=== PATIENT | male | born 1965 | race Caucasian/White ===

== ENCOUNTER 2025-10-09 08:45 | Emergency (ER) | payer SELFPAY ==
[2025-10-09] VITALS (10 sets, daily range): BP systolic 173–190; BP diastolic 73–104; PULSE 86–108; RESP 13–24; TEMP 36.4; O2SAT 95–98
--- NOTE | ~2025-10-09 | XR_ITS ---
Examination: XR chest 1V portable Clinical History: slurred speech, r/o CVA Comparison: None Technique: Portable AP Findings: Heart size mildly enlarged. Round nodular opacity right CP angle. Mildly increased interstitial markings. No acute bony abnormality. IMPRESSION: 1. Recommend CT chest to confirm right basilar nodule benign. 2. Mild interstitial pulmonary edema not excluded. Reviewed, dictated and finalized at location R. [employer]
--- NOTE | ~2025-10-09 | CT_ITS ---
CT HEAD NON-CONTRAST Clinical History: slurred speech, r/o CVA Comparison: None Technique: Unenhanced axial images skull base to vertex Coronal, sagittal reformats CT images acquired with automatic exposure control for dose reduction DLP: 1416 mGy-cm Findings: Sulci, ventricles: Unremarkable. No intracerebral hemorrhage. No evidence acute territorial infarct. No mass effect, midline shift. Bony calvarium intact. Visualized paranasal sinuses: Clear. Mastoid air cells: Clear. IMPRESSION: 1. No acute intracranial findings. Reviewed, dictated and finalized at location R. [employer]
--- NOTE | 2025-10-09 08:45 | ECG_ITS ---
Test Date: 2025-10-09 09:00:39 Measurements Intervals [place] Rate: 97 P: 24 CA: 152 QRS: 44 QRSD: 98 T: 27 QT: 330 QTc: 421 Interpretive Statements SINUS RHYTHM NONSPECIFIC T-WAVE ABNORMALITY ABNORMAL ECG No previous ECG available for comparison Electronically Signed On 10-09-2025 16:18:10 DE ICER by Saman De Santiago M.D.
--- NOTE | 2025-10-09 08:49 | ED.NEUROSD ---
HPI - Neuro Symptoms/Deficit General Chief Complaint: Neuro Symptoms/Deficit Stated Complaint: code stroke Time Seen by Provider: 10/09/25 08:45 History of Present Illness HPI Narrative: Patient is a 60-year-old male who presents the ER as a code stroke. Sudden onset slurring of speech and right-sided facial droop at 8:00 a.m. this morning. Patient reports he was normal prior to the sudden change in symptoms. He is not have stroke previously. He does not go see a PCP. His blood pressure is elevated. He is having no other symptoms other than facial and speech issues. Related Data Allergies Allergy/AdvReac Type Severity Reaction Status Date / Time No Known Allergies Allergy Verified 10/09/25 09:07 Review of Systems Review of Systems: All systems reviewed & are unremarkable except as noted in HPI and below Constitutional: Constitutional: Reports no additional constitutional complaints ENT: Reports system reviewed and no additional complaints, except as documented Cardiovascular: Cardiovascular: Reports no additional cardiovascular complaints Respiratory: Respiratory: Reports no additional respiratory complaints Neurologic: Reports system reviewed and no additional complaints, except as documented [facility] Past Medical History Medical History (Updated 10/09/25 @ 09:35 by Fabiano Hahn MD) Healthy adult male Surgical History Surgical History (Updated 10/09/25 @ 09:04 by Fabiano Hahn MD) No pertinent past surgical history Exam Narrative: GENERAL: Well-appearing, morbidly obese, and in no acute distress. HEAD: Normocephalic, atraumatic. EYES: PERRL and EOMI. ENT: Mucous membranes moist. CHEST: Clear to auscultation. No respiratory distress. HEART: Regular rate and rhythm. Normal peripheral pulses. ABDOMEN: Soft, nontender, nondistended. EXTREMITIES: Normal range of motion. No edema. SKIN: Warm, dry. Psoriasis type rash of the umbilicus or in hand. NEURO: See NIH stroke scale, 4. Dense right-sided facial droop. Slurred speech. Denies expressive aphasia, only difficulty due to tongue dysfunction. No loss of visual field. Alert and oriented x3. PSYCH: Normal mood and affect. Course Course Emergency Course: 929: Discussed case with Dr. Xavier at [facility] with the stroke team. Recommends TNK if platelets normal. Patient on a cardene gtt due to significantly elevated BP. Goal BP of 180 mmHg systolic. This is a time critical transport and we will arrange air medical transport. Dr. Chris in the ER at [facility] has accepted the patient. Patient has mild improvement of speech. Still with facial droop, NIH 2. 0948: Patients girth is too large for [facility]. [facility] contacted, they are available to take the patient. Vital Signs Vital signs: Vital Signs Temperature 97.6 F 10/09/25 08:57 Pulse Rate 90 10/09/25 08:57 Respiratory Rate 24 H 10/09/25 08:57 Blood Pressure 188/89 H 10/09/25 08:57 Pulse Oximetry 98 10/09/25 08:57 Oxygen Delivery Room Air 10/09/25 08:57 Temperature 97.6 F 10/09/25 08:57 Pulse Rate 104 H 10/09/25 10:01 Respiratory Rate 21 H 10/09/25 10:01 Blood Pressure 173/73 H 10/09/25 10:01 Pulse Oximetry 96 10/09/25 10:01 Oxygen Delivery Room Air 10/09/25 08:57 MDM - Neuro Symptoms/Deficit Lab Data 10/09/25 09:12 10/09/25 09:12 Labs: Lab Results 10/09/25 Range/Units 09:12 WBC 7.4 (4.5-10.0) K/mm3 RBC 5.58 (4.6-6.20) M/mm3 Hgb 16.3 (14.0-18.0) g/dL Hct 50.9 (42.0-52.0) % MCV 91.2 (80-100) fl MCH 29.2 (26-34) pg MCHC 32.0 (32-36) g/dl RDW 13.3 (11.5-14.5) % Plt Count 210 (150-375) k/mm3 MPV 11.2 H (7.4-10.4) fl Immature Gran % (Auto) 0.8 H (0-0.5) % Neut % (Auto) 66.0 (45.5-73.1) % Lymph % (Auto) 22.0 (18.3-44.2) % Weber % (Auto) 9.9 H (2.6-8.5) % Eos % (Auto) 0.9 (0-4.4) % Baso % (Auto) 0.4 (0.2-1.2) % Lymph # (Auto) 1.62 (0.9-3.2) K/mm3 Weber # (Auto) 0.7 H (0.1-0.6) K/mm3 Eos # (Auto) 0.1 (0-0.3) K/mm3 Baso # (Auto) 0.0 (0.0-0.1) K/mm3 Abs Immat Gran (auto) 0.06 H (0.00-0.031) K/mm3 Absolute Neuts (auto) 4.9 (1.3-6.7) K/mm3 Absolute Nucleated RBC 0.000 (0.0-0.012) K/mm3 Nucleated RBC % 0.0 (0.0-0.2) % PT 13.5 (11.1-14.7) Seconds INR 1.0 APTT 31.6 (22.3-36.8) Seconds Sodium 142 (137-145) mmol/L Potassium 4.2 (3.4-5.0) mmol/L Chloride 108 H (98-107) mmol/L Carbon Dioxide 23 (22-30) mmol/L Anion Gap 11 (4-12) mmol/L BUN 15 (9-20) mg/dL Creatinine 1.06 (0.7-1.3) mg/dL Estim Creat Clear Calc 105 ml/min Estimated GFR > 60 (59 - ) Glucose 145 H (65-110) mg/dL Calcium 8.8 (8.4-10.2) mg/dL Total Bilirubin 0.6 (0.2-1.3) mg/dL AST 39 (17-59) U/L ALT 53 H (6-50) U/L Alkaline Phosphatase 68 (38-126) U/L Troponin I < 0.012 (0.000-0.034) ng/mL Total Protein 8.3 H (6.3-8.2) g/dL Albumin 4.6 (3.5-5.1) g/dL Imaging Data Radiologist's impression: ITS Impressions Head CT 10/09/25 08:57 IMPRESSION: 1. No acute intracranial findings. Chest X-Ray 10/09/25 09:21 IMPRESSION: 1. Recommend CT chest to confirm right basilar nodule benign. 2. Mild interstitial pulmonary edema not excluded. Critical Care Time Critical Care Time Critical Care Time: Yes Total Critical Care Time: 45 Discharge Plan Discharge Clinical Impression: Cerebrovascular accident Patient Disposition: Acute Care Hospital Condition: Serious Patient Language: Ivorian Follow-up/Referrals: PHYSICIAN,ENERGY ADVISOR [Primary Care Provider, Internal Medicine] Quality Stroke Date of last known normal: 10/09/25 Time of last known normal: 08:00 Stroke Scale Stroke Scale 1: Stroke scale date:: 10/09/25 Stroke scale time:: 08:49 1a Level of consciousness: alert-0 1b Level of consciousness questions: answers both correctly-0 1c Level of consciousness commands: obeys both correctly-0 2 Best gaze: normal-0 3 Visual: no visual loss-0 4 Facial palsy: complete paralysis-3 5a Motor: left arm: no drift-0 5b Motor: right arm: no drift-0 6a Motor: left leg: no drift-0 6b Motor: right leg: no drift-0 7 Limb ataxia: absent-0 8 Sensory: normal-0 9 Best language: no aphasia-0 10 Dysarthria: slurs some words-1 11 Extinction and inattention: no abnormality-0 Level:: 4 Stroke Scale 2: Stroke scale date:: 10/09/25 Stroke scale time:: 09:33 1a Level of consciousness: alert-0 1b Level of consciousness questions: answers both correctly-0 1c Level of consciousness commands: obeys both correctly-0 2 Best gaze: normal-0 3 Visual: no visual loss-0 4 Facial palsy: partial paralysis-2 5a Motor: left arm: no drift-0 5b Motor: right arm: no drift-0 6a Motor: left leg: no drift-0 6b Motor: right leg: no drift-0 7 Limb ataxia: absent-0 8 Sensory: normal-0 9 Best language: no aphasia-0 10 Dysarthria: normal-0 11 Extinction and inattention: no abnormality-0 Level:: 2
[2025-10-09 09:18] LABS: Hematocrit 50.9 % (42.0-52.0); Hemoglobin 16.3 g/dL (14.0-18.0); Immature Granulocyte Percent A 0.8 % (0-0.5); Lymphocytes Absolute Auto 1.62 K/mm3 (0.9-3.2); Mean Corpuscular HGB Conc 32.0 g/dl (32-36); Mean Corpuscular Hemoglobin 29.2 pg (26-34); Mean Corpuscular Volume 91.2 fl (80-100); Nucleated Red Blood Cells Absolute Auto 0.000 K/mm3 (0.0-0.012); Nucleated Red Blood Cells Perc 0.0 % (0.0-0.2); Platelet Count Result 210 k/mm3 (150-375); Red Blood Count 5.58 M/mm3 (4.6-6.20); White Blood Count 7.4 K/mm3 (4.5-10.0)
[2025-10-09 09:30] LABS: Alanine Aminotransferase 53 U/L (6-50); Albumin Level 4.6 g/dL (3.5-5.1); Alkaline Phosphatase 68 U/L (38-126); Anion Gap 11 mmol/L (4-12); Aspartate Amino Transferase 39 U/L (17-59); Bilirubin,Total 0.6 mg/dL (0.2-1.3); Blood Urea Nitrogen 15 mg/dL (9-20); Calcium 8.8 mg/dL (8.4-10.2); Carbon Dioxide 23 mmol/L (22-30); Chloride 108 mmol/L (98-107); Estimated CRCL calculation 105 ml/min; Estimated Glomerular Filt Rate > 60; Glucose 145 mg/dL (65-110); Potassium 4.2 mmol/L (3.4-5.0); Sodium 142 mmol/L (137-145); Total Protein 8.3 g/dL (6.3-8.2)
[2025-10-09 09:35] LABS: INR 1.0; Prothrombin Time 13.5 Seconds (11.1-14.7)
[2025-10-09 09:36] LABS: Partial Thromboplastin Time 31.6 Seconds (22.3-36.8)
[2025-10-09] MEDS: TENECTEPLASE 50 MG/10 ML VIAL 25 MG IV PUSH (09:38)
[2025-10-09 09:41] LABS: Troponin I < 0.012 ng/mL (0.000-0.034)
== END 2025-10-09 10:33 | disposition short-term general hospital (02) ==
PROVIDERS: Emergency Provider Emergency Medicine
DX: I63.9 Cerebral infarction, unspecified (principal); R29.702 NIHSS score 2; R94.31 Abnormal electrocardiogram [ECG] [EKG]
CPT/HCPCS: 36415; 37195; 70450; 71045; 80053; 84484; 85025; 85610; 85730; 93005; 96365; 99285; J2404; J3101